=== PATIENT | female | born 2000 | race Caucasian/White ===

== ENCOUNTER 2019-12-06 18:10 | Emergency (ER) | payer MEDICAID ==
[~2019-12-06] VITALS: Ht 170.2 cm; Wt 72.0 kg
[2019-12-06 18:16] VITALS: BP 143/101
[2019-12-06] MEDS ORDERED: ONDA4TAB6 PO (19:14)
[2019-12-06] MEDS ORDERED: HYDR-3965 PO (19:14)
== END 2019-12-06 20:00 | disposition home or self-care (01) ==
LOC: ER 18:11
DX: S92.201A Fracture of unspecified tarsal bone(s) of right foot, initial encounter for closed fracture (principal); R58 Hemorrhage, not elsewhere classified; R60.9 Edema, unspecified; Z79.899 Other long term (current) drug therapy; X58.XXXA Exposure to other specified factors, initial encounter; Y93.89 Activity, other specified; Y92.89 Other specified places as the place of occurrence of the external cause; Y99.8 Other external cause status
CPT/HCPCS: 73630; 99284